=== PATIENT | male | born 1955 | race Caucasian/White ===

== ENCOUNTER 2022-01-21 20:06 | Inpatient (IN) | payer MEDICARE, MEDICAID ==
[~2022-01-21] VITALS: Ht 188 cm; Wt 66.7 kg
[2022-01-21 20:45] LABS: Base Excess Venous -11.2 mmol/L; Bicarbonate Venous 15.2 mmol/L (24.0-30.0); PCO2 Venous 57.4 mmHg (38-42); pH Blood Venous 7.11 (7.34-7.37)
[2022-01-21 21:10] LABS: BASOPHILS ABSOLUTE AUTO 0.04 K/mm3 (0.00-0.23); BASOPHILS PERCENT AUTO 0 % (0-2); EOSINOPHILS ABSOLUTE AUTO 0.01 K/mm3 (0.00-0.68); EOSINOPHILS PERCENT AUTO 0 % (0-6); Hematocrit 40.5 % (37.0-53.0); Hemoglobin 12.2 g/dL (13.5-17.5); IMMATURE GRAN ABSOLUTE AUTO 0.15 K/mm3 (0.00-0.10); IMMATURE GRAN PERCENT AUTO 1 % (0-1); LYMPHOCYTES ABSOLUTE AUTO 0.79 K/mm3 (0.84-5.20); LYMPHOCYTES PERCENT AUTO 5 % (21-46); MONOCYTES ABSOLUTE AUTO 2.28 K/mm3 (0.16-1.47); MONOCYTES PERCENT AUTO 14 % (4-13); Mean Corpuscular HGB 25.4 pg (26.0-34.0); Mean Corpuscular HGB Conc 30.1 g/dL (31.5-36.5); Mean Corpuscular Volume 84 fL (80-100); NEUTROPHILS ABSOLUTE AUTO 12.67 K/mm3 (1.96-9.15); NEUTROPHILS PERCENT AUTO 79 % (41-73); NRBC ABSOLUTE 0.02 K/mm3 (0.00-0.02); NRBC Auto 0.1 /100 WBC (0.0-0.2); RDW Coefficient Variation 22.4 % (11.7-14.2); RDW Standard Deviation 67.7 fL (35.1-46.3); White Blood Cell Count 15.94 K/mm3 (4.00-11.30)
[2022-01-21 21:26] LABS: Ethanol (Alcohol), Blood, Med <3 mg/dL; Magnesium, Blood 2.7 mg/dL (1.6-2.4)
[2022-01-21 21:33] LABS: Alanine Aminotransfer (ALT/SGP 498 U/L (12-78); Albumin, Blood 3.7 g/dL (3.4-5.0); Albumin/Globulin Ratio 0.8 (0.8-1.8); Alk Phos 152 U/L (50-136); Anion Gap 14 mmol/L (6-16); Aspartate Aminotrans (AST/SGOT 230 U/L (12-37); Bilirubin, Total 2.1 mg/dL (0.1-1.0); Blood Urea Nitrogen 21 mg/dL (8-24); Bun/Creatinine Ratio 17.5 (12.0-20.0); CO2, Blood 20 mmol/L (21-32); Calcium, Blood 9.1 mg/dL (8.5-10.1); Chloride, Blood 105 mmol/L (98-108); Globulin, Blood 4.6 g/dL (2.2-4.0); Glomerular Filtration Rate 47 (60-); Glucose, Blood 30 mg/dL (70-99); Potassium, Blood 5.7 mmol/L (3.5-5.5); Sodium, Blood 139 mmol/L (136-145); Total Protein, Blood 8.3 g/dL (6.4-8.2)
[2022-01-21 21:48] LABS: Mean Platelet Volume 10.4 fL (9.1-12.4); Platelet Count 394 K/mm3 (150-400)
[2022-01-21 21:51] LABS: Source, Urine Foley catheter
[2022-01-21 21:54] LABS: Bilirubin, Urine Neg (Neg); Blood, Urine 1+ (Neg); Glucose Qualitative, Urine Neg (Neg); Ketones, Urine 1+ (Neg); Leukocyte Esterase, Urine Neg (Neg); Nitrite, Urine Neg (Neg); Protein, Urine 3+ (Neg); Urobilinogen, Urine 3+ (Normal)
[2022-01-21 22:17] LABS: Appearance, Urine Clear (Clear); Color, Urine Yellow (P-Yellow)
[2022-01-21 22:18] LABS: Red Blood Cells, Urine 0-2 /hpf (0-2); White Blood Cells, Urine Not Seen /hpf (0-5)
[2022-01-21 22:19] LABS: Amorphous Light (0-Heavy); Bacteria Few /hpf; Spermatozoa Few /hpf; Squamous Epithelial Cells Few /hpf (Few)
[2022-01-21 22:22] LABS: U Amphetamine Screen DETECTED; U Barbituate Screen Not Detected; U Benzodiazapine Screen Not Detected; U Buprenorphine Screen Not Detected; U Cannabinoids Screen DETECTED; U Cocaine Screen Not Detected; U Methadone Screen Not Detected; U Methamphetamine Screen DETECTED; U Opiates Screen Not Detected; U Oxycodone Screen Not Detected; U Phencyclidine Screen Not Detected; U Propoxyphene Screen Not Detected
[2022-01-21 22:28] LABS: CPK Creatine Kinase 178 U/L (39-308); Creatine Kinase MB 5.6 ng/mL (0.0-3.6); Creatine Kinase MB Index 3.1 (0.0-4.0)
[2022-01-21 23:12] LABS: Influenza A, PCR NEGATIVE (NEGATIVE); Influenza B, PCR NEGATIVE (NEGATIVE); Resp Syncytial Virus, PCR NEGATIVE (NEGATIVE); SARS-Cov-2 (COVID-19) PCR, MMC NEGATIVE (NEGATIVE)
[2022-01-22 03:14] LABS: PO2 Arterial 106 mmHg (80-100)
[2022-01-22 04:15] LABS: BASOPHILS ABSOLUTE AUTO 0.02 K/mm3 (0.00-0.23); BASOPHILS PERCENT AUTO 0 % (0-2); EOSINOPHILS PERCENT AUTO 0 % (0-6); Hemoglobin 8.9 g/dL (13.5-17.5); IMMATURE GRAN ABSOLUTE AUTO 0.06 K/mm3 (0.00-0.10); IMMATURE GRAN PERCENT AUTO 1 % (0-1); LYMPHOCYTES ABSOLUTE AUTO 1.07 K/mm3 (0.84-5.20); LYMPHOCYTES PERCENT AUTO 9 % (21-46); MONOCYTES ABSOLUTE AUTO 1.03 K/mm3 (0.16-1.47); MONOCYTES PERCENT AUTO 9 % (4-13); Mean Corpuscular HGB 25.1 pg (26.0-34.0); Mean Corpuscular HGB Conc 30.7 g/dL (31.5-36.5); Mean Corpuscular Volume 82 fL (80-100); Mean Platelet Volume 10.4 fL (9.1-12.4); NEUTROPHILS ABSOLUTE AUTO 9.87 K/mm3 (1.96-9.15); NEUTROPHILS PERCENT AUTO 82 % (41-73); Platelet Count 300 K/mm3 (150-400); RDW Coefficient Variation 21.8 % (11.7-14.2); RDW Standard Deviation 65.3 fL (35.1-46.3); Red Blood Cell Count 3.55 M/mm3 (4.30-5.90); White Blood Cell Count 12.05 K/mm3 (4.00-11.30)
[2022-01-22 04:53] LABS: Albumin, Blood 2.6 g/dL (3.4-5.0); Albumin/Globulin Ratio 0.8 (0.8-1.8); Bilirubin, Total 1.3 mg/dL (0.1-1.0); Bun/Creatinine Ratio 21.2 (12.0-20.0); Calcium, Blood 7.8 mg/dL (8.5-10.1); Creatinine, Blood 1.18 mg/dL (0.60-1.20); Globulin, Blood 3.4 g/dL (2.2-4.0); Potassium, Blood 4.1 mmol/L (3.5-5.5)
--- NOTE | 2022-01-22 04:53 | NUR ---
END OF SHIFT SUMMARY PT WAS A NEW ADMIT ARRIVED AROUND 0000 PT WAS FOUND IN TENT UNRESPONSIVE ASSUMED OD WAS GIVEN NARCAN WITH NO RESULTS PTS LABS RESULTED AND PT BS WAS 30 PT WAS INTUNBATED IN ED ARRIVED ON PROPOFOL @30 WHEN TRING TO GET DIRTY SHEETS OUT AND GIVE CHG BATH PT STARTED THRASHING WAS UNABLE TO RESPOND TO COMANDS. IT TOOK A NUMBER OF NURSES AND RESPIRATORY TO KEEP PT FROM SELF EXTUBATION. THE PROP WAS INCREASED UNTILL PT WAS SEDATED. i HAVE TIRATED DOWN AND CURRENTLY @ 45. THE INCREASE OF PROPOFOL FOR SEDATION DROPPED PRESSURE SO LEVO WAS STARTED AND CURRENTLY RUNNING AT 4MCG CURRENTLY. WILL CONTINUE TO MONITOR AND REPORT TO ONCOMING RN
[2022-01-22 05:14] LABS: CPK Creatine Kinase 149 U/L (39-308)
--- NOTE | 2022-01-22 09:50 | NUR ---
SHIFT ASSESSMENT PT INTUBATED AND SEDATED. ANMOL WRIST RESTRAINTS. PROPOFOL TITRATED OFF FOR NEURO ASSESSMENT. PT NOT ABLE TO FOLLOW ANY COMMANDS, DID NOT OPEN EYES, CONTINUOUS RANDOM JERKING MOTIONS OF ALL EXTREMITIES. PT GIVEN 2MG ATIVAN RESULTING IN PT RELAXING FOR APPROXIMATELY 15 MINUTES, STILL NOT RESPONDING TO VERBAL STIMULI, NOT FOLLOWING COMMANDS. PT BACK ON PROPOFOL AT THIS TIME DUE TO INCREASED RR IN THE 40'S AND THRASHING IN BED. ON LOW DOSE LEVOPHED VIA PERIPHERAL IV @ 2MCG'S TO MAINTAIN MAP >65. OGT TO LIS. TEMP PROBE MCGILL DRAINING YELLOW URINE. WILL CONTINUE TO MONITOR CLOSELY.
--- NOTE | 2022-01-22 17:50 | NUR ---
SHIFT SUMMARY PT REMAINS INTUBATED, NO CHANGES TO VENT SETTINGS. OFF SEDATION SINCE 1314, NOT FOLLOWING ANY COMMANDS, MOVING EXTREMITIES SPONTANEOUSLY, NOT OPENING EYES GNAWING ON ETT. LEVOPHED OFF FOR MOST OF THE DAY, MAP >65. OGT TO SUCTION. TEMP PROBE MCGILL DRAINING YELLOW URINE. PT REMIANS A EGAN, NO LUCK SO FAR LOCATING FAMILY/ FRIENDS. NO OTHER ACUTE CHANGES.
--- NOTE | 2022-01-22 22:16 | NUR ---
ASSUMED CARE AT 1900 PT LAYING IN BED INTUBATED WITH VENT SETTINGS AC/VC+ 16/500/5/30%; MODERATE AMOUNT OF ORAL AND ETT SECREATIONS SUCTIONED. PT RESPONSIVE TO PAINFUL STIMULI; DOES NOT FOLLOW DIRECTIONS OR OPEN EYES BUT IS MOVING ALL EXTREMITITIES; SPONTANIOUSLY MOVES LEGS AND BRINGS THEM UP TO HIS CHEST; WILL OCCATIONALLY PULL AGAINST RESTRAINTS AND MOVES HEAD [id number]; PROPOFOL RESTARTED AFTER ASSESSMENT AT 10MCG/KG/MIN D/T RESTLESSNESS. TEMP 99.9, BLAKETS REMOVED AND FAN PLACED. HR 90'S. SBP 140'S. OG TO LISMonica MCGILL IN PLACE AND DRAINING TO GRAVITY. SEE SHIFT ASSESSMENT FOR FULL ASSESSMENT.
[2022-01-23 04:22] LABS: BASOPHILS ABSOLUTE AUTO 0.02 K/mm3 (0.00-0.23); BASOPHILS PERCENT AUTO 0 % (0-2); EOSINOPHILS ABSOLUTE AUTO 0.02 K/mm3 (0.00-0.68); EOSINOPHILS PERCENT AUTO 0 % (0-6); Hematocrit 31.4 % (37.0-53.0); Hemoglobin 9.7 g/dL (13.5-17.5); IMMATURE GRAN ABSOLUTE AUTO 0.02 K/mm3 (0.00-0.10); IMMATURE GRAN PERCENT AUTO 0 % (0-1); LYMPHOCYTES ABSOLUTE AUTO 1.36 K/mm3 (0.84-5.20); LYMPHOCYTES PERCENT AUTO 16 % (21-46); MONOCYTES ABSOLUTE AUTO 0.99 K/mm3 (0.16-1.47); MONOCYTES PERCENT AUTO 11 % (4-13); Mean Corpuscular HGB 25.1 pg (26.0-34.0); Mean Corpuscular HGB Conc 30.9 g/dL (31.5-36.5); Mean Corpuscular Volume 81 fL (80-100); Mean Platelet Volume 9.6 fL (9.1-12.4); NEUTROPHILS ABSOLUTE AUTO 6.25 K/mm3 (1.96-9.15); NEUTROPHILS PERCENT AUTO 72 % (41-73); Platelet Count 353 K/mm3 (150-400); RDW Standard Deviation 63.9 fL (35.1-46.3); Red Blood Cell Count 3.87 M/mm3 (4.30-5.90); White Blood Cell Count 8.66 K/mm3 (4.00-11.30)
[2022-01-23 04:41] LABS: Albumin, Blood 2.7 g/dL (3.4-5.0); Albumin/Globulin Ratio 0.8 (0.8-1.8); Bilirubin, Total 1.3 mg/dL (0.1-1.0); Bun/Creatinine Ratio 16.6 (12.0-20.0); Creatinine, Blood 1.51 mg/dL (0.60-1.20); Globulin, Blood 3.5 g/dL (2.2-4.0); Magnesium, Blood 2.2 mg/dL (1.6-2.4); Phosphorus, Blood 2.8 mg/dL (2.5-4.9); Potassium, Blood 3.4 mmol/L (3.5-5.5); Total Protein, Blood 6.2 g/dL (6.4-8.2)
[2022-01-23 05:05] LABS: PCO2 Arterial 36.8 mmHg (35-45); PO2 Arterial 67.8 mmHg (80-100); pH Blood Arterial 7.47 (7.35-7.45)
--- NOTE | 2022-01-23 06:21 | NUR ---
END OF SHIFT SUMMARY NO ACUTE EVENTS OVERNIGHT. PT CONT TO BE INTUBATED WITH VENT SETTINGS AC/VC 16/500/5/30%; MODERATE AMOUNT OF ORAL AND ETT SECREATIONS. PROPOFOL ON FOR 5HOURS FOR RESTLESSNESS, HAS BEEN OFF PROPOFOL SINCE 229; CONT TO NOT FOLLOW DIRECTIONS BUT MOVES EXTREMITIES SPONTANIOUSLY. AFEBRILE. HR 70-90'S. SBP 100-140. OG TO LIS. MCGILL IN PLACE WITH 2550ML OUTPUT. WILL REPORT TO AM RN WHEN AVAILABLE.
--- NOTE | 2022-01-23 13:18 | NUR ---
SHIFT ASSESSMENT ASSUMED CARE OF PT @ 1900, BEDSIDE REPORT RECEIVED FROM RUDY SERRATO. VENT SETTING-VC+16/500/30/5 c SATS >90%, LS CLEAR T/O. PT INTUBATED, OFF SEDATION SINCE APPROXIMATELY 0100. PT INTERMITTENTLY FAINTLY OPENS EYES, NOT FOLLOWING COMMANDS. MOVING ALL EXTREMITIES. PULLS AWAY TO NOXIOUS STIMULI. COUGH/GAG PRESENT. OGT TO LIS, WILL INITIATE TF TODAY, DIETARY CONSULTED. TEMP PROBE MCGILL DRAINING YELLOW URINE, AFEBRILE. SOCIAL WORKERS ATTEMPTING TO ID PATIENT, MAY CALL [facility] DEPT TO FINGERPRINT.
[2022-01-23 17:08] LABS: Magnesium, Blood 1.9 mg/dL (1.6-2.4)
[2022-01-23 17:10] LABS: Bun/Creatinine Ratio 13.6 (12.0-20.0); Calcium, Blood 8.4 mg/dL (8.5-10.1); Creatinine, Blood 1.54 mg/dL (0.60-1.20); Phosphorus, Blood 2.8 mg/dL (2.5-4.9)
--- NOTE | 2022-01-23 18:24 | NUR ---
SHIFT SUMMARY PT REMAINS INTUBATED, OFF SEDATION. VENT SETTINS REMAIN THE SAME. PT SEEMS TO BE MORE ALERT THIS EVENING. OPENING EYES TO VEBAL STIMULI, OCCASIONALLY TRACKING NURSE. DIFFICULT TO BE CERTAIN BUT INTERMITTENTLY FOLLOWING SIMPLE COMMANDS. THE NEURO CHANGES ARE NOT CONSISTENT. PT WITH MULTIPLE RUNS OF V-TACH. ELECTROLYTES CHECKED, REPLENISHING POTASSIUM AND MAGNESIUM. TEMP PROBE MCGILL DRAINING YELLOW URINE, AFEBRILE. TF INITIATED THIS EVENING. NO BM. NO OTHER ACUTE CHANGES.
[2022-01-24 03:46] LABS: BASOPHILS ABSOLUTE AUTO 0.02 K/mm3 (0.00-0.23); BASOPHILS PERCENT AUTO 0 % (0-2); EOSINOPHILS ABSOLUTE AUTO 0.04 K/mm3 (0.00-0.68); EOSINOPHILS PERCENT AUTO 1 % (0-6); Hematocrit 31.3 % (37.0-53.0); Hemoglobin 9.6 g/dL (13.5-17.5); IMMATURE GRAN ABSOLUTE AUTO 0.01 K/mm3 (0.00-0.10); IMMATURE GRAN PERCENT AUTO 0 % (0-1); LYMPHOCYTES ABSOLUTE AUTO 1.28 K/mm3 (0.84-5.20); LYMPHOCYTES PERCENT AUTO 21 % (21-46); MONOCYTES ABSOLUTE AUTO 0.71 K/mm3 (0.16-1.47); MONOCYTES PERCENT AUTO 12 % (4-13); Mean Corpuscular HGB 24.6 pg (26.0-34.0); Mean Corpuscular HGB Conc 30.7 g/dL (31.5-36.5); Mean Corpuscular Volume 80 fL (80-100); Mean Platelet Volume 9.3 fL (9.1-12.4); NEUTROPHILS ABSOLUTE AUTO 4.08 K/mm3 (1.96-9.15); NEUTROPHILS PERCENT AUTO 66 % (41-73); Platelet Count 363 K/mm3 (150-400); RDW Coefficient Variation 21.8 % (11.7-14.2); RDW Standard Deviation 63.4 fL (35.1-46.3); RETICULOCYTE ABSOLUTE 0.0449 M/mm3 (0.0200-0.1100); RETICULOCYTE COUNT PERCENT 1.15 % (0.50-2.50); White Blood Cell Count 6.14 K/mm3 (4.00-11.30)
[2022-01-24 04:27] LABS: Bun/Creatinine Ratio 15.3 (12.0-20.0); Calcium, Blood 8.3 mg/dL (8.5-10.1); Creatinine, Blood 1.44 mg/dL (0.60-1.20); Magnesium, Blood 2.1 mg/dL (1.6-2.4); Percent Saturation 5.7 % (20.0-50.0); Phosphorus, Blood 2.2 mg/dL (2.5-4.9); Potassium, Blood 2.8 mmol/L (3.5-5.5)
--- NOTE | 2022-01-24 06:55 | NUR ---
SHIFT SUMMARY: PT. REMAINED STABLE OVERNIGHT, BUT IS STILL UNABLE TO FOLLOW DIRECTIONS EVEN OFF SEDATION. PT. IS STILL IN RESTRAINTS AND ON MINIMAL VENT SETTINGS. PT. WENT INTO VTACH THIS AM WITH A RUN OF 22 BEATS, BUT CARDIOVERTED HIMSELF. MCGILL PUT OUT 3L OVERNIGHT AND TF IS RUNNING AT GOAL RATE.
--- NOTE | 2022-01-24 07:40 | NUR ---
ASSUMED CARE: PT INTUBATED WITH SETTINGS AC 16/500/30/5. NO SEDATION IN PLACE. PT OPENS HIS EYES AND MOVES ALL EXTREMITIES BUT DOES NOT FOLLOW COMMANDS OR APPEAR TO BE TRACKING WHEN STAFF IS AT BEDSIDE. DR CASILLAS AT BEDSIDE AND SAW PT WELL. NSR ON TELE, K-PHOS RUNNING WITH REPORT OF RUN OF VTACH FOR CHUCKING AND SAWING MACHINE OPERATOR. NO ACUTE NEEDS AT THIS TIME.
--- NOTE | 2022-01-24 10:04 | NUR ---
PT HAD EPISODE OF SITTING UP IN BED, APPEARED TO BE CONFUSED AND TRYING TO GET OUT OF BED. DID NOT SELFEXTUBATE. EASILY REORIENTED. WAS ABLE TO FOLLOW COMMANDS AND TRACK STAFF. DR CASILLAS AWARE. RESTING QUIETLY AT THIS TIME.
--- NOTE | 2022-01-24 15:17 | NUR ---
TWO STAFF FROM VOICE SYSTEMS ENGINEER'S OFFICE ARRIVED TO TAKE A PICTURE AND FINGERPRINTS TO AID IN IDENTIFYING PT. CARE MANAGEMENT, PALLIATIVE CARE AND THIS RN WERE AT BEDSIDE. PALLIATIVE CARE NURSE STAYED AFTER ATTEMPTING TO ASK PT ORIENTING QUESTIONS WITHOUT SUCCESS. DR CASILLAS AWARE AND ATTEMPTED TO ASK PT ORIENTING QUESTIONS. PT UNABLE TO FOLLOW COMMANDS PART OF THE TIME. DR CASILLAS STATES POSSIBLE EXTUBATION TOMORROW.
--- NOTE | 2022-01-24 17:10 | NUR ---
PT BECAME AGITATED DURING LAB DRAW, SECOND NURSE BROUGHT IN TO HOLD ARM AND PT WAS FLAILING ARMS AND LEGS. PROPOFOL RESTARTED AT 20MCG/KG FOR AGITATION. LAB STATED THEY WOULD RETURN FOR LAB DRAW WHEN PT WAS MORE CALM. CARE ASST WENT TO BEDSIDE TO ATTEMPT IV START BUT PT WAS TOO AGITATED FOR THAT. LAB CAME BACK TO REATTEMPT AND WAS ABLE TO GET SPECIMEN BUT PT WAS RESISTANT. PROPOFOL INCREASED TO 30MCG/KG AT THIS TIME.
--- NOTE | 2022-01-24 17:46 | NUR ---
TELEVISION INSTALLER'S OFFICE CALLED WITH NAME TO MATCH PT'S FINGERPRINTS. WAREHOUSE LOGISTICS COORDINATOR CALL TO ADMITTING TO GET NAME CHANGED IN SYSTEM. M.E. OFFICE REPORTED 3 PHONE NUMBERS WHICH WERE GIVEN TO PALLIATIVE CARE WHO MADE ATTEMPTS TO REACH OUT TO REPORTED SON. NO ANSWERING MACHINE ON LAST NUMBER. PALLIATIVE CARE STATED WILL FOLLOW UP TOMORROW.
--- NOTE | 2022-01-24 18:19 | NUR ---
CALL TO DR CASILLAS TO MAKE HIM AWARE OF PT'S AGITATION. MULTIPLE STAFF AT BEDSIDE ATTEMPTING TO CALM PT. DR CASILLAS ORDERED FURTHER MEDICATIONS FOR SEDATION AND DID MAKE HIM AWARE OF PT'S FEVER BUT CURRENTLY ON IV ABX. PT CURRENTLY ON 45MCG/KG PROPOFOL AND GIVEN A DOSE OF ATIVAN. FOUR POINT RESTRAINTS IN PLACE. NO FURTHER NEEDS AT THIS TIME.
--- NOTE | 2022-01-24 21:33 | NUR ---
ASSUMPTION OF CARE/ASSESSMENT: ASSUMED CARE OF PT AT 1900; PT INTUBATED AND SEDATED AT THIS TIME WITH PROPOFOL GTT 45 MCG AT THE START OF THE SHIFT AND VENT SETTINGS SPONT. PEEP- 5.0, FIO2- 30%, RR 10-12, SPO2 92%, AND TV- 450-600. SHORTLY AFTER ASSUMPTION OF CARE, PT BECAME AGGITATED WHEN STIMULATED SO PROPOFOL GTT TITRATED UP TO 55 MCG, AND 2 MG ATIVAN IV PUSH GIVEN. PT HAS RELAXED AND IS NOW LAYING IN BED PEACEFULLY. PT RESPONSIVE TO VERBAL STIMULI AND OPENNED EYES ONCE DURING INITIAL ASSESSMENT BUT NOT TRACKING OR FOLLOWING COMMANDS. PT LUNG SOUNDS ARE CLEAR THROUGHOUT. HR IN THE 80'S, SBP 120'S, AND CONTINUOUS INTERNATIONAL RECRUITER IN PLACE. OGT IN PLACE AND TUBE FEEDINGS GOING AT 40 MLS/HR, HYPOACTIVE BS IN ALL FOUR QUADRANTS, AND ABD SOFT, NON-TENDER. PT HAS A MCGILL IN PLACE AND DRAINING TO GRAVITY; URINE YELLOW. PT WARM EXTREMITIES WITH SCATTERED SCABS; PPP X 4. WILL CONTINUE TO MONITOR.
[2022-01-25 03:44] LABS: BASOPHILS ABSOLUTE AUTO 0.02 K/mm3 (0.00-0.23); BASOPHILS PERCENT AUTO 0 % (0-2); EOSINOPHILS ABSOLUTE AUTO 0.11 K/mm3 (0.00-0.68); EOSINOPHILS PERCENT AUTO 2 % (0-6); Hematocrit 31.7 % (37.0-53.0); IMMATURE GRAN ABSOLUTE AUTO 0.01 K/mm3 (0.00-0.10); IMMATURE GRAN PERCENT AUTO 0 % (0-1); LYMPHOCYTES ABSOLUTE AUTO 1.28 K/mm3 (0.84-5.20); LYMPHOCYTES PERCENT AUTO 25 % (21-46); MONOCYTES PERCENT AUTO 16 % (4-13); Mean Corpuscular HGB 25.1 pg (26.0-34.0); Mean Corpuscular HGB Conc 31.5 g/dL (31.5-36.5); Mean Corpuscular Volume 79 fL (80-100); Mean Platelet Volume 9.3 fL (9.1-12.4); NEUTROPHILS ABSOLUTE AUTO 2.92 K/mm3 (1.96-9.15); NEUTROPHILS PERCENT AUTO 57 % (41-73); Platelet Count 345 K/mm3 (150-400); RDW Coefficient Variation 21.7 % (11.7-14.2); RDW Standard Deviation 61.8 fL (35.1-46.3); Red Blood Cell Count 3.99 M/mm3 (4.30-5.90); White Blood Cell Count 5.14 K/mm3 (4.00-11.30)
[2022-01-25 04:09] LABS: Albumin, Blood 2.4 g/dL (3.4-5.0); Albumin/Globulin Ratio 0.6 (0.8-1.8); Bilirubin, Total 1.2 mg/dL (0.1-1.0); Bun/Creatinine Ratio 17.8 (12.0-20.0); Calcium, Blood 8.1 mg/dL (8.5-10.1); Creatinine, Blood 1.18 mg/dL (0.60-1.20); Globulin, Blood 3.8 g/dL (2.2-4.0); Magnesium, Blood 2.1 mg/dL (1.6-2.4); Phosphorus, Blood 2.2 mg/dL (2.5-4.9); Potassium, Blood 3.2 mmol/L (3.5-5.5); Total Protein, Blood 6.2 g/dL (6.4-8.2)
--- NOTE | 2022-01-25 06:42 | NUR ---
SHIFT SUMMARY: NO ACUTE CHANGES THIS SHIFT. PT RESTARTED ON SEDATION BEFORE THE START OF THIS SHIFT AND PROPOFOL IS NOW RUNNING AT 35 MCG. PT REMAINS INTUBATED WITH VENT SETTINGS AC/VC 16/500/5/30%. VSS THROUGHOUT THE SHIFT. PT HAD NO BOWEL MOVEMENT THIS SHIFT. WILL CONTINUE TO MONITOR UNTIL ONCOMING RN ARRIVES.
--- NOTE | 2022-01-25 08:33 | NUR ---
ASSUMED CARE REPORT FROM [place]/WALT GRANT AT 0700. PT INTUBATED AND SEDATED. VENT SETTINGS AC/VC 16/500/5/30%. LUNGS CLEAR. SCANT SECRETIONS FROM ETT. COUGH/GAG/SWALLOW REFLEX PRESENT. PROPOFOL GTT FOR SEDATION, TITRATING DOWN. PT GRIMACES c ORAL CARE, TURNS HEAD AWAY. NO OTHER MOVEMENT, NO WITHDRAWING FROM PAINFUL STIMULI. SR ON MONITOR, RATE 80'S. BP STABLE. ABD ROUND, SOFT, NON TENDER. HYPERACTIVE BT. NO BM, BOWEL CARE PROVIDED. TUBE FEEDS AT GOAL. MCGILL PATENT, DRAINING CLEAR YELLOW URINE TO GRAVITY. PIV X 3. WILL CONTINUE TO MONITOR.
--- NOTE | 2022-01-25 10:20 | NUR ---
DR HUERTA ROUNDS PLAN FOR D/C TODAY. ROOMMATE KALPESH TO PICK PT UP THIS AFTERNOON.
--- NOTE | 2022-01-25 12:57 | NUR ---
EXTUBATION PT PLACED ON SPONT 10/14/30% TV 350-400'S. TOLERATING WELL. PROPOFOL ON STANDBY. OPENS EYE SPONT, NOT FOLLOWING COMMANDS. EXTUBATED AT 1119. LUNGS CLEAR, ON , 02 SATS 94%. ABLE TO MANAGE SECRETIONS. INCOMPREHENSIBLE SOUNDS. PT RESTLESS IN BED, NOT REDIRECTABLE, PULLING ON LINES AND TUBES. APPEARS TO BE HALLUCINATING, PICKING AT AIR. PRECEDEX STARTED ORDERED. RESTRAINTS REMAIN IN PLACE. BED ALARM ON. WILL CONTINUE TO MONITOR.
--- NOTE | 2022-01-25 17:29 | NUR ---
SHIFT SUMMARY PT EXTUBATED THIS SHIFT, SEE PREVIOUS NOTE. PT c GARBLED INCOHERANT SPEECH. OCCASIONALLY ABLE TO MAKE OUT A FEW WORDS. PT PULLING ON RESTRAINTS, NOT REDIRECTABLE, DOES NOT FOLLOW DIRECTIONS. STATES "CUT THIS OFF ME." ATTEMPTED TO REORIENT. CONTINUES TO YELL, PULL ON RESTRAINTS. MEDICATED c ATIVAN X 1. PRECEDEX CONTINUES. RESTING AT THIS TIME. TITRATING PRECEDEX DOWN. LUNGS CLEAR. SR, RATE 80'S. BP STABLE. UNABLE TO FOLLOW DIRECTIONS FOR BEDSIDE SWALLOW. CATH REMOVED THIS SHIFT D/T PT AGITATION AND PULLING. WILL CONTINUE TO MONITOR.
--- NOTE | 2022-01-25 20:17 | NUR ---
ASSUMPTION OF CARE THIS RN AND ROJELIO GRANT ASSUMED CARE OF PATIENT AT 1900. REPORT TAKEN FROM DREAD GRANT. PATIENT'S BP STABLE. NSR ON MONITOR WITH HR 70-80S. AFEBRILE. PRECEDEX INFUSING AT 0.5MCG/KG/HR AT BEGINNING OF SHIFT. LUNGS CLEAR BILATERALLY; ON RA WITH O2 SATS >92%. PUPIL RESPONSE BRISK. PATIENT NOT FOLLOWING COMMANDS. PATIENT BECAME AGGITATED AFTER BEING AROUSED. BEHAVIORS ESCALATED AND PATIENT WAS NOT REDIRECTABLE. PATIENT NOT ANSWERING QUESTIONS AND ONLY SAYING REPETITIVE STATEMENTS SUCH "CUT THESE OFF OF ME", WHILE PULLING AT SOFT RESTRAINTS ON BILATERAL WRISTS. PATIENT GIVEN 25MCG OF FENTANYL WITH NO RELIEF. PATIENT BECAME MORE AGGITATED AND WAS CLOSE TO GETTING LEFT WRIST RESTRAINT OFF. PRECEDEX INCREASED TO 0.7MCG/KG/HR AT THIS TIME. ATIVAN GIVEN PER EMAR WITH GOOD RESULTS. ORAL CARE DONE ONCE PATIENT WAS CALM. REPOSITIONED. ATTENDS DRY/INTACT. BED IN LOWEST POSITION. THIS RN WILL REVIEW CHART AND CONTINUE TO MONITOR CLOSELY AND PROVIDE INTERVENTIONS NEEDED/ORDERED.
--- NOTE | 2022-01-25 20:55 | NUR ---
PATIENT UPDATE PATIENT PLACED ON 2L VIA NC DUE TO DESATTING AFTER ATIVAN GIVEN. SPO2 >92% ON 2L. PRECEDEX DECREASED TO 0.5MCG/KG/HR. SEE ASSESSMENT.
[2022-01-26 03:49] LABS: BASOPHILS ABSOLUTE AUTO 0.02 K/mm3 (0.00-0.23); BASOPHILS PERCENT AUTO 0 % (0-2); EOSINOPHILS ABSOLUTE AUTO 0.18 K/mm3 (0.00-0.68); EOSINOPHILS PERCENT AUTO 4 % (0-6); Hematocrit 32.9 % (37.0-53.0); IMMATURE GRAN ABSOLUTE AUTO 0.01 K/mm3 (0.00-0.10); IMMATURE GRAN PERCENT AUTO 0 % (0-1); LYMPHOCYTES ABSOLUTE AUTO 1.35 K/mm3 (0.84-5.20); LYMPHOCYTES PERCENT AUTO 27 % (21-46); MONOCYTES ABSOLUTE AUTO 0.82 K/mm3 (0.16-1.47); MONOCYTES PERCENT AUTO 16 % (4-13); Mean Corpuscular HGB 24.8 pg (26.0-34.0); Mean Corpuscular HGB Conc 30.4 g/dL (31.5-36.5); Mean Corpuscular Volume 81 fL (80-100); Mean Platelet Volume 8.9 fL (9.1-12.4); NEUTROPHILS ABSOLUTE AUTO 2.72 K/mm3 (1.96-9.15); NEUTROPHILS PERCENT AUTO 53 % (41-73); Platelet Count 283 K/mm3 (150-400); RDW Coefficient Variation 21.5 % (11.7-14.2); RDW Standard Deviation 63.6 fL (35.1-46.3); Red Blood Cell Count 4.04 M/mm3 (4.30-5.90)
[2022-01-26 04:08] LABS: Bun/Creatinine Ratio 19.6 (12.0-20.0); Calcium, Blood 8.4 mg/dL (8.5-10.1); Creatinine, Blood 1.07 mg/dL (0.60-1.20); Magnesium, Blood 2.3 mg/dL (1.6-2.4)
--- NOTE | 2022-01-26 05:12 | NUR ---
SHIFT SUMMARY NO ACUTE CHANGES DURING THIS SHIFT. PATIENT CONTINUES TO BE AGGITATED WHEN AWAKE AND NOT REDIRECTABLE. DOES NOT ANSWER QUESTIONS OR FOLLOW COMMANDS. PATIENT REPETIVELY ASKING FOR STAFF TO "CUT THESE OFF" WHILE PULLING AT BILATERAL WRIST RESTRAINTS. PATIENT CONTINUES TO BE NPO DUE TO MENTATION AND INABILITY TO FOLLOW DIRECTIONS. PATIENT WAS PLACED ON O2 VIA NC DUE TO DESATTING WHILE ASLEEP; O2 TITRATED TO 1L WITH SPO2 >92%. LUNG SOUNDS REMAIN CLEAR. TACHYPNEA NOTED. BP STABLE. NSR. AFEBRILE. PRECEDEX TITRATED THROUGHOUT THE SHIFT DUE TO AGGITATION; CURRENTLY INFUSING AT 0.4MCG/KG/HR. SEE ICU FLOWSHEET. PATIENT DID NOT VOID THROUGHOUT SHIFT. BLADDER SCANNED AT 0400 SHOWING >454 ON BLADDER SCANNER. STRAIGHT CATH USED PER PROTOCOL, DRAINING 400MLS OF TEA COLORED URINE. LOOSE SMALL STOOLS THROUGHOUT THE SHIFT. REPOSITIONED Q2HRS. ORAL CARE Q4HRS. SEE ASSESSMENT. BILATERAL WRIST RESTRAINTS IN PLACE. THIS RN WILL CONTINUE TO MONITOR AND PROVIDE INTERVENTIONS NEEDED/ORDERED UNTIL SHIFT CHANGE AT 0700.
--- NOTE | 2022-01-26 11:00 | NUR ---
ASSUMED CARE REPORT FROM ROJELIO GRANT AT 0700. PT RESTING IN BED. WAKES c VERBAL STIMULI. PRECEDEX GTT AT SHIFT CHANGE. TITRATED OFF. PT CURRENTLY AGITATED. AWAKE. PULLING ON LINES AND CORDS. STATES HE WANTS TO LEAVE. ABLE TO TOLERATE JELLO. LUNGS CLEAR. VSS. SR, RATE 70'S ON MONITOR. BP STABLE. WILL CONTINUE TO MONITOR.
--- NOTE | 2022-01-26 11:40 | NUR ---
PT AGITATED, PULLING ON RESTRAINTS. REQUESTING TO USE BATHROOM. TWO PERSON ASSIST TO BSC. URINATED AND HAD BM. PT YELLING FOR ICE WATER, UNABLE TO REDIRECT. SPITTING ON FLOOR. UNABLE TO STAND INDEPENDENTLY. ASSISTED BACK TO BED. MEDICATED c ATIVAN ORDERED. RESTRAINTS REMOVED TO DECREASE AGITATION. BED ALARM ON. DR NICOLAS ROUNDED. PT MED s TELE. WILL CONTINUE TO MONITOR.
[2022-01-26 15:09] LABS: Percent Saturation 12.5 % (20.0-50.0)
--- NOTE | 2022-01-26 16:16 | NUR ---
SHIFT SUMMARY PT STATUS CHANGED TO MED s TELE THIS SHIFT. PT HAD INTERMITTANT AGITATION, SEE PREVIOUS NOTE. CURRENTLY RESTING IN BED. PASSED BEDSIDE SWALLOW. NEEDS ASSISTANCE c MEALS/DRINKS. REPORT TO SANTOS GRANT FOR REST OF DAY SHIFT.
--- NOTE | 2022-01-26 16:26 | NUR ---
Assumed care of pt at 1615 from Lashawn GRANT.
--- NOTE | 2022-01-26 18:30 | NUR ---
Transferred to medical floor via bed accompanied by this RN and Ashlee CALVERT. Upon transfer, pt became awake and started yelling, demanding cereal. Chart, medications, and belongings transferred with patient.
--- NOTE | 2022-01-26 18:41 | NUR ---
TRANSFER FROM ICU Bedside report from DOLL WIGS HACKLER. Patient awaken when moved to knew bed, pt became agitated, yelling for food. Tried to redirect. Patient yelling "I want cereal, get me fucking cereal", patient is shaking bed rails, and yelling/cursing at staff. aware, 1 time order for 100mg seroquel PRN. Bed alarm activated audible, remote monitoring in place.
--- NOTE | 2022-01-26 19:28 | NUR ---
PATIENT TRYING TO GET OOB, SCREAMING AND CUSSING AT STAFF. PATIENT TRYING TO HIT STAFF. APPLIED 4X SOFT RESTRAINTS, PATIENTS SLIPPED HANDOUT, TRIED TO PUNCH NURSE. APPLIED VEST, TO RESTRAIN UPPER BODY. PATIENT SCREAMING, SPITTING AT STAFF. MD AWARE, ORDERED RESTRAINTS, AND HALDOL 10MG IM X1.
--- NOTE | 2022-01-27 04:03 | NUR ---
Patient sleeping most of shit, when not asleep very combative.
--- NOTE | 2022-01-28 04:34 | NUR ---
Patient resting in bed, in restraints at this time.
[2022-01-28] MEDS ORDERED: FURO40 PO (04:35)
[2022-01-28] MEDS ORDERED: METO50ER PO (04:35)
[2022-01-28] MEDS ORDERED: Prinivil10 MG PO (04:35)
[2022-01-28] MEDS ORDERED: Ventolin/Prove6.7 GM INH (04:36)
[2022-01-28] MEDS ORDERED: ATOR80 PO (04:36)
[2022-01-28] MEDS ORDERED: COMBIVENT RESPIM4 G1 INH (04:36)
[2022-01-28] MEDS ORDERED: SPIR25 PO (04:37)
--- NOTE | 2022-01-28 16:39 | NUR ---
PATIENT WAS PRESCRIBED SEROQUEL AND CELEXA WAS DISCONTINUED. SEROQUEL WAS GIVEN AROUN THE NOON HOUR. PATIENT IS RELAXED ASLEEP. SOFT ANKLE AND HARD WRIST RESTRAINT REMOVED. PATEINT IS ONLY IN LOVE AT THIS TIME.
--- NOTE | 2022-01-28 17:51 | NUR ---
BEGINNING OF SHIFT PATIENT AGGITATED, PULLING AGAINST RESTRAINTS. SEROQUEL 25 MG TID ORDRED. PATIENT ATE LUNCH AND WAS INFORMED OF RELEASE CRITEREA TO WHICH HE AGREES. HE WAS GIVEN A SEROQUEL-AFTERWICH HE HAS BEEN DOZING, WAKING UP WHEN TALKED TO. ANKLE SOFT AND WRIST HARD RESTRAINTS WERE REMOVED. PATIENT HAS LOVE VEST IN PLACE. CIRCULATION, ROM, IN TACT. PATIENTS MENTAL STATUS-HE DOESN'T REMEMBER WHY HE IS HERE. HE HAS NO MEMORY OF HITTING AT NURSES. UNSURE IF HIS WILLINGNESS TO BE SAFE WILL STAY MEDICATION WEARS OFF AND BECASUE SEROQUEL CAN AND IS A BIT SEDATING FOR THIS PATIENT, THE LOVE VEST IS IN PLACE FOR HIS SAFETY.
--- NOTE | 2022-01-29 03:17 | NUR ---
Patient continues to be combative with care, attempting to hit nurses while having brief changed, continues in restraints.
--- NOTE | 2022-01-29 14:51 | NUR ---
PULLED IV PATIENT PULLED IV. SITE IN LUE WRAPPED WITH GAUZE AND COBAN. PLACED BACK IN SOFT WRIST RESTRAINTS SO IV SITE CAN CLOT WITHOUT PATIENT PICKING AT COBAN AND GAUZE. CALLED DR NICOLAS AND OBTAINED ORDERS TO LEAVE IV OUT, AND TO DC IV MEDS. PATIENT RESTING CALMLY IN BED AT THIS TIME.
--- NOTE | 2022-01-29 17:58 | NUR ---
SHIFT SUMMARY PATIENT CONFUSED AND DIFFICULT TO AROUSE THROUGH AM, DECREASED RESTRAINT ORDERS FROM LOCKED WRIST AN LOVE VEST IN AM TO JUST LOVE VEST BY AFTERNOON. WOKE UP A LITTLE IN AFTERNOON. ABLE TO SIT AT EDGE OF BED TO USE URINAL. TOLERATES BITES OF REGULAR DIET AND LIQUIDS. ATTENDS IN PLACE. PATIENT PULLED IV IN AFTERNOON. ORDER FOR NO IV OBTAINED. SCHEDULED SEROQUEL DECREASED FROM TID TO BID. ABLE TO FEED HIMSELF DINNER.
[2022-01-30 05:49] LABS: BASOPHILS ABSOLUTE AUTO 0.02 K/mm3 (0.00-0.23); BASOPHILS PERCENT AUTO 0 % (0-2); EOSINOPHILS ABSOLUTE AUTO 0.13 K/mm3 (0.00-0.68); EOSINOPHILS PERCENT AUTO 1 % (0-6); Hematocrit 34.4 % (37.0-53.0); Hemoglobin 10.4 g/dL (13.5-17.5); IMMATURE GRAN ABSOLUTE AUTO 0.03 K/mm3 (0.00-0.10); IMMATURE GRAN PERCENT AUTO 0 % (0-1); LYMPHOCYTES ABSOLUTE AUTO 1.73 K/mm3 (0.84-5.20); LYMPHOCYTES PERCENT AUTO 17 % (21-46); MONOCYTES ABSOLUTE AUTO 0.96 K/mm3 (0.16-1.47); MONOCYTES PERCENT AUTO 9 % (4-13); Mean Corpuscular HGB 24.2 pg (26.0-34.0); Mean Corpuscular HGB Conc 30.2 g/dL (31.5-36.5); Mean Corpuscular Volume 80 fL (80-100); Mean Platelet Volume 9.8 fL (9.1-12.4); NEUTROPHILS ABSOLUTE AUTO 7.32 K/mm3 (1.96-9.15); NEUTROPHILS PERCENT AUTO 72 % (41-73); Platelet Count 315 K/mm3 (150-400); RDW Coefficient Variation 21.5 % (11.7-14.2); RDW Standard Deviation 61.6 fL (35.1-46.3); Red Blood Cell Count 4.29 M/mm3 (4.30-5.90); White Blood Cell Count 10.19 K/mm3 (4.00-11.30)
--- NOTE | 2022-01-30 06:04 | NUR ---
ALERT TO SELF. COOPERATIVE WITH CARE THIS SHIFT. LOVE VEST RESTRAINT FOR FALL RISK; CONTINUES TO IMPULSIVELY ATTEMPT TO EXIT BED UNSAFELY. PRN TYLENOL GIVEN FOR C/O HEADACHE AND GENERALIZED DISCOMFORT. 2X ASSIST TO BSC WITH GAITBELT. LARGE BM THIS SHIFT (LAXATIVE HELD). PO FLUIDS ENCOURAGED. SLEEP PROMOTED. BED ALARM SET. CALL LIGHT IN REACH; ENCOURAGED TO MAKE NEEDS KNOWN
--- NOTE | 2022-01-30 17:31 | NUR ---
SHIFT SUMMARY AOX1-2. NO ACUTE CHANGES THIS SHIFT. PT HAS BEEN COOPERATIVE AND FOLLOWED DIRECTIONS, ONLY TRYING TO GET OUT OF HIS LOVE TWICE BUT WAS EASY TO REDIRECT. HE IS CURRENTLY RESTING. WILL RESPORT TO ONCOMING NURSE.
--- NOTE | 2022-01-31 05:26 | NUR ---
ALERT TO SELF. COOPERATIVE WITH CARE THIS SHIFT. LOVE VEST RESTRAINT FOR FALL RISK; CONTINUES TO IMPULSIVELY ATTEMPT TO EXIT BED UNSAFELY. PRN TYLENOL GIVEN FOR C/O HEADACHE AND GENERALIZED DISCOMFORT; "FINE" PER PATIENT AT REASSESSMENT. 1X ASSIST TO BSC WITH GAITBELT. PO FLUIDS ENCOURAGED.SLEEP PROMOTED. BED ALARM SET. CALL LIGHT IN REACH; ENCOURAGED TO MAKE NEEDS KNOWN
--- NOTE | 2022-01-31 17:21 | NUR ---
SHIFT SUMMARY PT HAS BEEN NAPPING OFF AND ON TODAY WITH EPISODES OF FRUSTRATION AND CONFUSION. HE HAS BEEN ABLE TO SHAKE OUT OF HIS LOVE VEST TWICE, ONE TIME LEAVING HIS ROOM THINKING HE WAS ENTERING THE BATHROOM WHEN HE WAS ACTUALLY GOING INTO ANOTHER PT'S ROOM. SINCE THEN, HE HAS BEEN NAPPING AND COOPERATIVE. HE IS AOX1, SELF. WILL REPORT TO THE ONCOMING NURSE.
--- NOTE | 2022-02-01 07:14 | NUR ---
ALERT TO SELF. ARGUEMENTATIVE, IRRITABLE, AND LESS COOPERATIVE WITH CARE THIS SHIFT COMPARED TO PRIOR CODER. PRN ATIVAN GIVEN FOR AGITATION; APPEARS LESS AGITATED S/P ADMINISTRATION. LOVE VEST RESTRAINT FOR FALL RISK; CONTINUES TO IMPULSIVELY ATTEMPT TO EXIT BED UNSAFELY. C/O HEADACHE; PATIENT DECLINED TO ANSWER THIS RN WHEN ASKED IF HE WOULD LIKE MEDICATION FOR PAIN (OFFERED MULTIPLE TIMES WITH DIFFERENT PHRASING). PATIENT ROLLED OVER TO FACE AWAY FROM RN INSTEAD OF CONVERSING AND APPEARS TO BE SLEEPING/COMFORTABLE AT THIS TIME. 1-2X ASSIST TO BATHROOM. PO FLUIDS ENCOURAGED. SLEEP PROMOTED. BED/CHAIR ALARM SET. CALL LIGHT IN REACH; ENCOURAGED TO MAKE NEEDS KNOWN
--- NOTE | 2022-02-01 07:16 | NUR ---
A/OX2; SELF AND PLACE. REFUSING ALL MEDS BESIDES KEPPRA AND ASPIRIN. IND IN ROOM/ MONITORED IN HALLWAY. DENIES PAIN. C/O BEING COLD, WARM BLANKETS PROVIDED. VISITOR BROUGHT PIZZA THIS SHIFT; APPPEARED TO BRIGHTEN PATIENT'S MOOD; CONTINUES WITH REPATATIVE CONVERSATION T/O SHIFT R/T PLANS FOR THANKSGIVING DINNER (POLICY/PROTOCOLS ON REMAINING ON UNIT REINFORCED). PO FLUIDS ENCOURAGED. SLEEP PROMOTED. CALL LIGHT IN REACH; ENCOURAGED TO MAKE NEEDS KNOWN. AWAITING PLACEMENT.
--- NOTE | 2022-02-01 07:19 | NUR ---
ALERT TO SELF. ARGUEMENTATIVE, IRRITABLE, AND LESS COOPERATIVE WITH CARE THIS SHIFT COMPARED TO PRIOR OUTSIDE CONTRACTOR SALES. PRN ATIVAN GIVEN FOR AGITATION; APPEARS LESS AGITATED S/P ADMINISTRATION. LOVE VEST RESTRAINT FOR FALL RISK; CONTINUES TO IMPULSIVELY ATTEMPT TO EXIT BED UNSAFELY. C/O HEADACHE; PATIENT DECLINED TO ANSWER THIS RN WHEN ASKED IF HE WOULD LIKE MEDICATION FOR PAIN (OFFERED MULTIPLE TIMES WITH DIFFERENT PHRASING). PATIENT ROLLED OVER TO FACE AWAY FROM RN INSTEAD OF CONVERSING AND APPEARS TO BE SLEEPING/COMFORTABLE AT THIS TIME. 1-2X ASSIST TO BATHROOM. PO FLUIDS ENCOURAGED. SLEEP PROMOTED. BED/CHAIR ALARM SET. CALL LIGHT IN REACH; ENCOURAGED TO MAKE NEEDS KNOWN
--- NOTE | 2022-02-01 17:03 | NUR ---
SHIFT SUMMARY PT AOX1 TO SELF. HE HAS BEEN AGITATED AND IRRITABLE MOST OF THE SHIFT, MEDICATED PER THE EMAR. HE IS CONFUSED AND IS DIFFICULT CONVERSE WITH AT TIMES. HE HAS BEEN PULLING AT HIS LOVE BUT AT TIMES DUE TO WANTING TO USE THE RESTROOM OR NEEDING A SNACK. HE HAD AN EPISODE THIS SHIFT WITH THROWING A BEVERAGE AND YELLING. WILL REPORT TO THE ONCOMING NURSE.
--- NOTE | 2022-02-01 17:40 | NUR ---
WALKED INTO THE PT'S ROOM AND HE WAS AGITATED STATING, " I WANT TO GET OUT OF HERE, YOU CAN'T KEEP ME TIED UP LIKE A CHIMPANZE". HE PROCEEDED TO TO PUSH THE CHAIR BACK TO THE SINK, TURN THE NOZZEL TO THE EDGE AND SPRAY WATER ONTO THE GROUND SURROUNDING THE SINK AND THE CHAIR. ONCE HE CALMED DOWN, HE SAID HE JUST WANTED TO PEE AND GO BACK INTO THE CHAIR. WITH THE HELP OF CHALO, WE MOVED HIM FROM THE CHAIR TO THE BED. HE USED THE URINAL AND IS NOW RESTING COMFORTABLY IN BED.
--- NOTE | 2022-02-01 20:17 | NUR ---
ON CAMERA, REPORTED THAT HE WAS KICKING AT BEDSIDE TABLE. UPON ARRIVAL AT ROOM, NOTED PT YELLING HE NEEDED TO "PEE REAL BAD". ASSISTED WITH URINAL. VOIDED. LINEN CHANGED HE WAS WET WELL. POSET VEST INTACT. PT DEMANDING VEST REMOVED, BUT REMAINS A HIGH FALL RISK WHO DOES NOT REDIRECT. DISCUSSED SITUATION WITH PT. CALL LIGHT IN REACH. WILL CONTINUE TO MONITOR
--- NOTE | 2022-02-02 03:12 | NUR ---
HEALTH SERVICES DIRECTOR SUMMARY VSS. ALTERED MENTAL STATUS CONTINUES WITH PT EASILY AGITATED, REFUSING TO REDIRECT, HIGH FALL RISK, STILL TRYING TO GET OUT OF BED WITH LOVE VEST IN USE. ACCEPTED HS MEDS ORALLY, BUT QUICK TO BECOME AGITATED. FINALLY, USING URINAL WHEN INSTRUCTED TO WHILE HOLDING IT IN FRONT OF HIM TO DO SO. VERBAL RESPONSE REMAINS SLURRED AND/OR INCOHERENT TO QUESTIONS ASKED. MENTIONED ABOVE, LOVE IN USE THROUGH SHIFT. DOCUMENTATION AT LEAST EVERY 2 HRS. CURRENTLY RESTING QUIETLY WITH CALL LIGHT IN REACH. ON CAMERA FOR ADDITIONAL SAFETY
[2022-02-02 05:49] LABS: Hematocrit 36.6 % (37.0-53.0); Hemoglobin 11.6 g/dL (13.5-17.5); Mean Corpuscular HGB 25.2 pg (26.0-34.0); Mean Corpuscular HGB Conc 31.7 g/dL (31.5-36.5); Mean Corpuscular Volume 79 fL (80-100); Mean Platelet Volume 9.8 fL (9.1-12.4); Platelet Count 296 K/mm3 (150-400); RDW Coefficient Variation 21.6 % (11.7-14.2); RDW Standard Deviation 61.3 fL (35.1-46.3); Red Blood Cell Count 4.61 M/mm3 (4.30-5.90); White Blood Cell Count 7.93 K/mm3 (4.00-11.30)
[2022-02-02 06:14] LABS: Calcium, Blood 8.8 mg/dL (8.5-10.1); Creatinine, Blood 0.7 mg/dL (0.60-1.20); Potassium, Blood 4.4 mmol/L (3.5-5.5)
--- NOTE | 2022-02-02 15:11 | NUR ---
PT BEHAVIOUR BEGAN TO ESCALATE AFTER LUNCH-YELLING OUT, THRASHING AROUND IN BED, CUSSING, DEMANDING TO BE RELEASED FROM [facility]. STATED VEST WAS ON SO TIGHT HE COULDN'T BREATHE. RESP EVEN AND UNLABORED. VEST SNUG BUT NOT TIGHT. ASSISTED TO BATHROOM AND THEN TO CHAIR. ATIVAN GIVEN WHICH PT WAS QUIET FOR APPROX 30 MINUTES AFTER TAKING BUT THEN BEGAN SAME BEHAVIORS. ALSO YELLING OUT FOR A CIGARETTE. EXPLAINED NO SMOKING IN HOSPITAL AND HE DIDN'T HAVE ANY CIGARETTES HE INSISTED HE DID. CUSSING AND CALLING STAFF NAMES, BANGING CALL BUTTON ON SIDE RAIL, GRABBING IV POLE AND PULLING IT OVER HIMSELF. OFFERED TO TAKE HIM FOR A WALK IN HALLWAY AND ONCE PT WAS OUT OF HIS ROOM HE STARTED ATTEMPTING TO GO IN OTHER PTS ROOMS AND NEEDED IMMEDIATE REMOVAL AND RETURN TO ROOM. SPOKE WITH MD AND ANOTHER DOSE OF ATIVA ORDERED. WHEN OFFERED TO HIM HE SAID "I NEED 2 PILLS. I WANT IT TO KNOCK ME OUT". TOOK IT AND ROLLED OVER ON HIS SIDE. WILL CONTINUE TO MONITER BEHAVIORS.
--- NOTE | 2022-02-02 17:06 | NUR ---
SHIFT SUMMARY PT HAS BEEN LAYING IN BED QUIETLY WITH EYES CLOSED BREATHING EVEN AND UNLABORED SINCE 2ND DOSE OF ATIVAN. HOLDING VS TIL HE WAKES UP. MD IN TO SEE PT PRIOR TO HIM FALLING ASLEEP THIS TIME.
--- NOTE | 2022-02-03 03:42 | NUR ---
WIDTH STRIPPER SUMMARY VSS. REMAINS HIGH FALL RISK, REFUSES OR IS UNABLE TO REDIRECT. MEDICATED PER MAR, BUT STILL AGITATED. PULLED SELF OUT OF LOVE VEST, WANDERING UNSTEADY ABOUT HALLWAY. ESCALATED WITH AGITATION WHEN ENCOURAGED TO RETUEN TO ROOM. ASSISTED TO BED, INCREASED TO INCLUDE LIMB CUFFS PER MD ORDER, BUT PULLED SELF OUT OF SOFT WRIST CUFFS AND WAS PLACED IN BILAT WRIST LOCKED TOUGH CUFFS AND BILAT ANKLE SOFT CUFFS. AGIATION CONTINUED INTO THE SHIFT. QUIET WITH OCCASIONAL OUTBURSTS OF THREATS AND SCREAMS BUT REMAINS UNWILLING TO CALM AND AGREE TO SAFE BEHAVIOR. SE MAR FOR DETAILS OF MEDS GIVEN. CALL LIGHT IN REACH. WILL CONTINUE TO MONITOR.
--- NOTE | 2022-02-03 17:53 | NUR ---
SHIFT SUMMARY PT A&OX2-3, MOOD UP AND DOWN T/O SHIFT. D/JESSICA RESTRAINTS THIS SHIFT-DOES NOT CALL APPROPRIATLY FOR BATHROOM USE, REMOTE MONITOR AND BEDALARM IN PLACE. SHOWERED THIS SHIFT. TOLERATING PO INTAKE WELL. C/O "I NEED A CIG AND TO GO TO THE BAR." EASILY REDIRECTED. VSS. MULTIPLE BM THIS SHIFT. CALL LIGHT W/IN REACH.
--- NOTE | 2022-02-04 04:34 | NUR ---
SHIFT SUMMARY: Pt A/Ox2. Bed alarms and remote radiation monitor on for safety as pt does not call for help OOB and he can be unsteady. Pt recieved PRN Tylenol x2 overnight for c/o headache. Around 0200 pt became very restless and stated he was anxious. PRN ativan given for anxiety. No need for restraints this shift. These were taken off during previous shift and so far pt has tolerated the removal well. he had no c/o nausea, dizziness or SOB. He is currently AWP.
--- NOTE | 2022-02-04 17:05 | NUR ---
SHIFT SUMMARY PT AXO X3 THOUGH AT TIMES HAS DIFFICULTY FINDING THE RIGHT WORDS WHEN SPEAKING. PT OOB FREQUENTLY AND QUICKLY SETTING OFF BED ALARM. PT COMPLAINED OF PAIN 10/, MEDICATED PER EMAR. MEDICATED FOR ANXIETY X1 THIS SHIFT. UP WITH SBA. NO IV IN PLACE. NO ACUTE CHANGES THIS SHIFT. VSS. BED IN LOW POSITION, CALL LIGHT WITHIN REACH, BED ALARM ON, ON CAMERA. PT STATES HE WANTS TO LEAVE BUT DOES NOT FOLLOW THROUGH WITH LEAVING.
--- NOTE | 2022-02-05 04:33 | NUR ---
SHIFT SUMMARY: Pt A/Ox2 and not call light appropriate even with redirecting. Remote monitoring on for staff safety and pt safety. Bed alarms also utilized. Pt became agitated around 0145 stating he wanted a cigarette and was going to leave, he then became hard to redirect and threatned that he "wants to find someone to punch". PRN Haldol given x1 for his agitation. He had frequent voiding overnight. He had c/o severe headache, recieved PRN tylenol. No c/o nausea or SOB.
--- NOTE | 2022-02-05 16:42 | NUR ---
SHIFT SUMMARY PATIENT IS ALERT AND ORIENTED TO SELF. PATIENT HAS HAD NO ACUTE EVENTS THIS SHIFT. PATIENT HAS CONTINUOUSLY GOTTEN OUT OF BED SETTING BED ALARM OFF. VITAL SIGNS REVIEWED. PATIENT IS REDIRECTABLE FOR A SHORT WHILE BEFORE FORGETTING. PATIENT HAS HAD NO COMPLAINTS OF PAIN, SOB, NAUSEA OR VOMITTING THIS SHIFT. BED IN LOCKED AND LOWEST POSITION. CALL LIGHT IN PLACE. WILL MONITOR UNTIL SHIFT CHANGE.
--- NOTE | 2022-02-06 04:24 | NUR ---
SHIFT SUMMARY: Pt A/Ox2. Pt had c/o headache this shift, recieved PRN tylenol. Remote staking technician on as pt is impulsive at times. He was independant in his room but did sometimes try to leave the room and wander into other pt rooms. He was easily redirectable. He denies SOB, nausea, dizziness.
--- NOTE | 2022-02-06 18:42 | NUR ---
SUMMARY- PT A/O X3-4- PROBLEMS WITH SEQUENCING. PT NAPPED ON/OFF THROUGH THE DAY. PERIODS OF ANXIETY, MANY QUESTIONS TO WHAT HAPPENED TO HIM AND WHAT IS THE PLAN. CALLED DR FLORES TO SPEAK WITH HIM AT HIS REQUEST, SHE STATED SHE WOULD COME, BUT MAY NOT BE UNTIL TOMORROW. OT COG EVAL COMPLETE WITH SCORE OF 18/30- PT AMBULATES INDEPENDANT. VOIDS IN BATHROOM. TOLERATING FOOD AND FLUIDS. MEDICATED ONCE THIS PM WITH TYLENOL FOR NECK PAIN. PLAN IS TO FIND PROPER PLACEMENT FOR PATIENT.
--- NOTE | 2022-02-07 04:22 | NUR ---
SUMMARY: PT A/OX3 BUT CONFUSED TO EVENT AND PLACE W/REMINDERS PROVIDED PRN. HE REQ'S FREQ SNACKS AND COMES INTO HALLS OFTEN FOR VARIOUS NONACUTE DEMANDS. PT IS INDEPENDENT IN ROOM AND SHOWERED SELF W/SETUP ASSIST. HE GETS IMPATIENT WHEN NEEDS AREN'T MET IMMEDIATELY OR WHEN STAFF SET BOUNDARIES. CX PENDING FOR GUARDIANSHIP, FACE SHEET FAXED TO THE ER. PLACEMENT LIKELY NEEDED WELL D/T HOMELESSNESS. NO ACUTE CHANGES, VSS/AFEBRILE. WCTM AND REPORT TO DAY RN.
--- NOTE | 2022-02-07 19:28 | NUR ---
SHIFT SUMMARY NO ACUTE CHANGES. PT CONFUSED BUT COOPERATIVE OF CARE. INDPENDENT IN ROOM. PT CONTINUES TO VERBALIZE HUNGER BETWEEN MEALS. SNACKS FROM PANTRY PROVIDED. PT WONDERED OUT TO [facility] A FEW TIMES BUT WAS EASILY REDIRECTED BACK TO HIS ROOM. DOES NOT USE CALL LIGHT, PT COMES TO DOORWAY TO VOICE NEEDS. REPORT GIVEN TO SUPERVISOR DECORATING NURSE.
--- NOTE | 2022-02-08 04:35 | NUR ---
SUMMARY: PT A/OX2-3 BUT REMAINS CONFUSED TO SITUATION/PLACE W/REMINDERS PROVIDED PRN. HE'S INDEPENDENT IN ROOM AND HAS BEEN MOSTLY PLEASANT AND COOPERATIVE W/CARE BUT RANDOMLY BEGAN URINATING ON THE FLOOR AND IN HIS GARBAGE CAN THIS SHIFT. PT COULDN'T EXPLAIN WHY HE WAS SUDDENLY NECLECTING HIS RESTROOM BUT WAS RECEPTIVE TO INSTRUCTION AND NEED TO REGULARLY USE TOILET INSTEAD. HE WAS AWAKE MOST OF NOCTE, WANDERING OUT OF ROOM AND CONT'S TO REQUEST SNACKS FREQUENTLY BUT WAS COMPLIANT W/FOOD RESTRICTIONS ENFORCED TO PREVENT OVEREATING. NO ACUTE CHANGES, VSS/AFEBRILE. CX FOR GUARDIANSHIP STILL PENDING W/PROBABLE NEED FOR PLACEMENT D/T HOMELESSNESS. WCTM AND REPORT TO DAY RN.
--- NOTE | 2022-02-08 16:56 | NUR ---
SHIFT SUMMARY NO ACUTE CHANGES IN PT CONDITION. INDEPENDENT IN ROOM. PT CONTINUES TO ASK FOR SNACKS. PT WAS SEEN BY DR. LOVE. NEW ORDERS GIVEN. PER GROOVER AND STRIPER OPERATOR, DAUGHTER IS AGREEALE TO BECOMING GAURDIAN. BED IN LOWEST POSITION AND CONTINUE TO REINFORCE THE USE OF CALL LIGHT.
--- NOTE | 2022-02-09 04:44 | NUR ---
SHIFT MOSTLY UNREMARKABLE. CLIENT SLEPT THROUGH MOST OF THE NIGHT AFTER 2100 MEDICATIONS. PATIENT AWOKE ONCE THROUGH NIGHT AND AFTER WANDERING INTO [facility] LOOKING FOR RESTROOM WAS AGITATED UPON BEING DIRECTED TO RESTOOM IN HIS ROOM. SHIFT OTHERWISE NOT NOTEWORTHY. CALL LIGHT LEFT WITHIN REACH.
--- NOTE | 2022-02-09 16:36 | NUR ---
SHIFT SUMMARY PT AxOx3 WITH OCCASIONAL CONFUSION. PT IS COOPERATIVE WITH CARE, YET DEMANDING AT TIMES FOR FOOD AND DRINKS. PT IS REDIRECTABLE WHEN APPROACHED. VITALS REVIEWED. PT DENIES PAIN THIS SHIFT. CURRENT PLAN IS STILL AWAITING GUARDIANSHIP PLACEMENT. PT DENIES ANY NEEDS AT THIS TIME. CALL LIGHT IN REACH.
--- NOTE | 2022-02-10 05:31 | NUR ---
SHIFT MOSTLY UNREMARKABLE. CLIENT SLEPT THROUGH MOST OF SHIFT, AWAKING A COUPLE OF TIMES FOR TYLENOL AND FOOD. OVERALL PLEASANT AND COOPERATIVE WITH CARE. AOX1. EARLY IN EVENING PATIENT WAS ALEXANDER SEVERAL SNACKS AND THEN TRIED TO TAKE A BITE OUT OF A PAIR OF SOCKS BEFORE BEING REDIRECTED. CALL LIGHT LEFT WITHIN REACH.
[2022-02-10 06:15] LABS: Albumin, Blood 3.3 g/dL (3.4-5.0); Anion Gap 7 mmol/L (6-16); Blood Urea Nitrogen 35 mg/dL (8-24); Bun/Creatinine Ratio 44.1 (12.0-20.0); CO2, Blood 24 mmol/L (21-32); Calcium, Blood 9.8 mg/dL (8.5-10.1); Chloride, Blood 105 mmol/L (98-108); Creatinine, Blood 0.79 mg/dL (0.60-1.20); Glomerular Filtration Rate 98 (60-); Glucose, Blood 105 mg/dL (70-99); Phosphorus, Blood 4.6 mg/dL (2.5-4.9); Potassium, Blood 4.9 mmol/L (3.5-5.5); Sodium, Blood 136 mmol/L (136-145)
--- NOTE | 2022-02-10 17:43 | NUR ---
SHIFT SUMMARY NO ACUTE CHANGES DURING SHIFT. PT ALERT TO SELF AND SITUATION AT TIMES. PT ABLE TO MAKE NEEDS KNOWN. PT INDEPENDENT IN ROOM. PT REMAINS ON RA. PENDING GUARDIANSHIP AND PLACEMENT. NO C/O PAIN. WILL CONTINUE TO MONITOR. CALL LIGHT WITHIN REACH.
--- NOTE | 2022-02-11 06:14 | NUR ---
SHIFT SUMMARY - PT HAD GOOD PO INTAKE THROUGHOUT THE NIGHT. NO ACUTE CHANGES THROUGHOUT THIS SHIFT. PT HAS BEEN INDEPENDENT WITH AMBULATION IN ROOM, TO BRP, AND OCCASIONALLY OUT IN THE HALLS. PT IS EASILY REDIRECTABLE. PT'S SKIN COLOR IS DUSKY. CARE MANAGEMENT ON THE CASE, AWAITING GUARDIANSHIP/PLACEMENT. WILL CONTINUE TO MONITOR UNTIL AM SHIFT CHANGE.
--- NOTE | 2022-02-11 17:16 | NUR ---
SHIFT SUMMARY NO ACUTE CHANGES DURING SHIFT. PT ALERT AND ORIENTED X 2, CALLS APPROPRIATELY. PT ON RA, INDEPENDENT IN ROOM. PT SLIGHTLY AGITATED THIS AFTERNOON, PRN SEROQUEL ADMINISTERED, MONITOR FOR EFFECTIVENESS. PENDING GUARDIANSHIP AND PLACEMENT FOR PT. WILL CONTINUE TO MONITOR. CALL LIGHT WITHIN REACH.
--- NOTE | 2022-02-12 01:31 | NUR ---
PATIENT UP IN HALLS. REFUSED VITAL SIGNS IN THE BEGINNING OF NOC SHIFT. WOULD NOT TAKE HS MEDS. SHORT WHILE LATER PATIENT HAD CHANGE OF MOOD AND ALLOWED HS MEDS. HE IS ORIENTED TO SELF ONLY. WALKING IN HALLWAY ASKING TO GO TO THE KITCHEN AND COOK "SOMETHING" PATIENT EASILY REDIRECTABLE AND RETURNS TO ROOM. USES BATHROOM AND BACK TO BED.
--- NOTE | 2022-02-12 17:12 | NUR ---
SHIFT SUMMARY PT AXO TO SELF ONLY. PT HAS BEEN FIXATED ON "EDUCATIONAL ADVISER" AND "WORKING." VSS. NO IV IN PLACE. UP AD DAMARIS WITH STEADY GAIT. PLEASANT AND COOPERATIVE WITH CARE. MEDICATED FOR AGGITATION X1 PER EMAR. BED IN LOW POSITION, CALL LIGHT WITHIN REACH.
--- NOTE | 2022-02-13 01:41 | NUR ---
SHIFT SUMMARY; PATIENT TOOK SHOWER EARLY IN NOC SHIFT. HE FLOODED THE ROOM X 2. PATIENT WILL NEED TO BE MONITORED WHEN HE IS IN SHOWER HE TURNS SPRAYER ON TO FLOOR. HE COMPLAINS OF BACK PAIN AND WAS MEDICATED WITH TYLENOL WITH GOOD RESULTS. HE IS INDEPENDANT TO BATHROOM AND BACK. HIS VITAL SIGNS ARE WNL. HE IS ORIENTED TO SELF AT THIS TIME. PLAN IS FOR GUARDIANSHIP AND PLACEMENT.
--- NOTE | 2022-02-13 17:02 | NUR ---
PATIENT IS ALERT AND ORIENTED TO SELF AND PLACE. PATIENT HAS BEEN ASKING TO LEAVE STATING HE HAS BILLS TO PAY AND MONEY TO GET FROM A BANK IN [place] AND NEEDS TO MAKE IT THERE BEFORE THEY CLOSE. HE KEPT STATING THAT HE WAS GOING TO CALL A FLOOR WORKER. HE SAID THAT THE HOSPITAL IS INTERFERRING WITH HIM MAKING MONEY. PATIENT WAS NOTIFIED THAT WE ARE AWAITING GAURDIANSHIP AT THIS TIME AND BECAUSE OF THIS HE IS UNABLE TO LEAVE. RN TRIED TO CALM THE PATIENT WITH DIVERSIONAL ACTIVITIES BUT ULTIMATELY HE BECAME SO UPSET THAT HE SMASHED THE PHONE IN HIS ROOM ON THE GROUND MULTIPLE TIMES UNTIL IT SHATTERED. AT THIS TIME, SECURITY WAS CALLED. ONCE SECURITY ARRIVED, IM ZYPREXA WAS ADMINISTERED. PATIENT IS CALM AND COOPERATIVE WITH CARE AT THIS TIME. PATIENT IS INDEPENDENT IN HIS ROOM.
--- NOTE | 2022-02-14 05:53 | NUR ---
SHIFT SUMMARY PATIENT ALERT AND ORIENTED X3. MEDICATED PER EMAR FOR PAIN. OVERNIGHT PATIENT AT ONE POINT THREW EVERYTHING ON HIS BEDSIDE TABLE ACROSS THE ROOM. PATIENT WAS ASKED TO CLEAN THE MESS UP AND HE DID. NO ACUTE ISSUES NOTED OVERNIGHT. CALL LIGHT WITHIN REACH. REPORT GIVEN TO ONCOMING RN.
--- NOTE | 2022-02-14 08:45 | NUR ---
PT SAYING HE WANTS BREAKFAST RIGHT NOW AT 0730. SNACK FROM PANTRY OFFERED AND EXPLAINED BREAKFAST WOULD BE BROUGHT UP AT APPROX 0815. FOOD GIVEN BUT PT STATED HE WAS GOING TO LEAVE AND GET HIS JOB BACK AND DRIVE HIS TRUCK. HE HAD MONEY AND DIDN'T NEED TO STAY HERE AND WAIT FOR FOOD BECAUSE THE SANDWICH WAS LUNCH FOOD NOT BREAKFAST FOOD. CAME INTO HALLWAY AND STARTED BANGING ON [facility] DOOR. REDIRECTED BACK TO ROOM AND MORE FOOD GIVEN. PT ATE IT AND STARTED LOUDLY AND FORCEFULLY TALKING ABOUT LEAVING AGAIN WHILE FORCEFULLY PUSHING HIS BEDSIDE TABLE TOWARD STAFF. CAME OUT TO HALLWAY YELLING HE WAS GOING TO LEAVE AND HE COULDN'T BE KEPT HERE AND HE WAS GOING TO CALL HIS PARTS PULLER. STARTED KICKING [place] DOOR UNTIL IT BANGED OPEN AND HE STARTED TO LEAVE DESPITE ATTEMPTS TO REDIRECT. STAFF IN HALLWAY NEAR DESK ASKED HIM ABOUT HIS UNDRESSED APPEARANCE AND GOING OUTSIDE WHILE SECURITY CALLED. ABLE TO FINALLY REDIRECT BACK TO ROOM AFTER APPROX 5 MINUTES OF ATTEMPTED VERBAL REDIRECTION. WENT BACK TO ROOM THREATENING CALLING HIS PARTS PULLER. ZYPREXA IM GIVEN WITH PT COOPERATIVE WITH INJECTION. HAS BEEN CALM AND COOPERATIVE SINCE. DID REPORT PAIN ABOUT HIS SHOULDERS WHICH A K PAD OFFERED AND GIVEN AND TYLENOL GIVEN.
--- NOTE | 2022-02-14 18:31 | NUR ---
SHIFT SUMMARY PT HAD BEEN COOPERATIVE AND AGREEABLE THE REMAINDER OF THE DAY. DID SLAM HIS DOOR ONCE LATE THIS AFTERNOON AND FREQUENTLY ASKING FOR FOOD. ATTEMPTING TO TAKE FOOD OF MEAL CART IN HALLWAY AND NEEDED REDIRECTION NOT TO EAT FOOD OFF OF AN ALREADY USED MEAL TRAY. HE APPEARED TO STRUGGLE WITH UNDERSTANDING WHY THE FOOD WOULD BE WASTED. STABLE ON HIS FEET.
--- NOTE | 2022-02-14 23:09 | NUR ---
SARAH FROM [facility] CAME TO UNIT ASKING IF THE PATIENT HAD RECENTLY BEEN IN THE SHOWER. PATIENT'S SHOWER WAS HEARD RUNNING FOR A SHORT TIME AT THE BEGINNING OF THE SHIFT HE IS INDEPENDENT WITH BATHING. THIS RN HAD BEEN IN AN OUT OF PATIENT'S ROOM, BUT DID NOT NOTICE WATER ON THE FLOOR UP AGAINST THE WALL IT WAS UNDER FURNITURE AND FIXTURES (TABLES, BED, SHELVING, ETC). IT APPEARED THE PATIENT HAD LEFT THE SHOWER HEAD RUNNING AND OUTSIDE OF THE SHOEWR, FLOODING THE ROOM ALONG THE WALL OPPOSITE OF THE DOOR. PATIENT WAS MOVED TO [place] [id number].
--- NOTE | 2022-02-15 06:09 | NUR ---
JOB SUPERINTENDENT SUMMARY: A&Ox3-4 DEPENDING ON THE TIME AND SITUATION. 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 DURING SHIFT CHANGE, HE WAS HEARD IN THE BATHROOM AND WATER RUNNING THOUGH HE WAS TAKING A SHOWER. HE REQUESTED A SNACK, TOOK HIS MEDS WITHOUT DIFFICULTY AND WAS ALYING IN BED, QUIETLY. HOURS LATER, AMRIK ARRIVED TO THE FLOOR STATING THE ROOM BENEATH PT'S ROOM HAD WATER LEAKING FROM THE CEILING TILES. PATIENT WAS MOVED TO ANOTHER ROOM AND LATER. LATER THAT EVENING, PATIENT WAS FOUND BY PHOTOGRAPH ENLARGER ON THE FLOOR OF THE BATHROOM AT WHICH TIME HE GOT HIMSELF UP OFF OF THE FLOOR AND BACK TO HIS BED IN SPITE OF THE PHOTOGRAPH ENLARGER ASKING HE STAY WHERE HE WAS. VS OBTAINED; BP SOFT, BUT PT A&O. DENIED HITTING HEAD OR LOC. HE THEN ASKED THIS RN TO GO TO THE STORE FOR TWO LARGE BAGS OF CEREAL AND A GALLON OF MILK. WHEN TOLD THIS RN COULD NOT GO TO THE STORE FOR HIM HE BECAME HIGHLY AGITTAED AND STATED HE WAS STARVING AND DEMANDED, "BRING ME A BIG BOWL OF CEREAL RIGHT NOW!" AND BEGAN CURSING UNDER HIS BREATH. THIS RN OFFERED PRN ZYPREXA PT HAS A Hx OF KNOWING WHEN HE IS ESCALATING. MADE A DEAL HE WOULD TAKE ZYPREXA IF HE COULD HAVE CEREAL; THIS EXCHANGE WAS MADE AND PT SLEPT FOR A FEW HOURS. HE GOT OUT OF BED TO [facility], LOOKIN FOR ICE WATER, CUSSING AT STAFF AND TELLING THIS RN TO GET AWAY FROM HIM. SURVEILLANCE HAS CALLED TWICE STATING HE WAS SITTING UP ON THE RIGHT SIDE OF HIS BED, URINATING ON TO THE FLOOR. WHEN THIS RN WENT IN AND EXPLAINED THIS WAS UNACCEPTABLE BEHAVIOR, HE CONTINUED TO PRETEND TO SLEEP AND KEPT HIS EYES CLOSED. EXPLAINED IF HE CONTINUES THIS BEHAVIOR, HE WILL HAVE TO BE PUT INTO RESTRAINTS BECAUSE THIS IS A FALL RISK AND HE CONTIUED TO PRETEND TO BE SLEEPING.
--- NOTE | 2022-02-15 17:21 | NUR ---
SHIFT SUMMARY: NO NEW CHANGES THIS SHIFT. PATIENT A&OX3. IMPULSSIVE AT TIMES BUT REDIRECTABLE. PATIENT WAS AGITATED BEGINNING OF SHIFT AND WANTING TO GO HOME. EDUCATE PATIENT THAT HE NEEDED TO STAY IN THE HOSPITAL FOR HIS SAFETY. MEDICATED X1 WITH PRN SEROQUEL. PATIENT HAS BEEN CALM AND COOPERATIVE T/O THE DAY. PATIENT REPORTS OF SHOULDER/BACK PAIN. MEDICATED X1 WITH TYLENOL FOR PAIN. REPORTS OF ADEQUATE RELIEF. AMBULATES IN ROOM/BATHROOM SBA/INDEPEN WITHOUT NEEDING AMBULATORY DEVICES. PATIENT MET WITH APD IN ROOM TODAY. PATIENT RECEIVED SNACKS MULTIPLE TIMES T/O THE DAY. RECEIVED SHOWER AND LINEN CHANGED. NO IV ACCESS. VITAL SIGNS REVIEWED. CALL LIGHT IN REACH.
--- NOTE | 2022-02-15 22:01 | NUR ---
CALL F/ELECTRICAL APPLIANCE PREPARER APROX 2130 SPOKE W/ELECTRICAL APPLIANCE PREPARER; STATES SAW PT LAY DOWN ON THE FLOOR BRIEFLY AND THEN GET UP. SHORTLY AFTER PT EMERGED F/HIS ROOM STATING HE FELL AND NEEDED SOMETHING F/PAIN. PT HAS BEEN IMPULSIVE AND AGRESSIVE. I DID NOT DISCUSS ELECTRICAL APPLIANCE PREPARER'S REPORT W/PT. ASSESSED PT; NO ACUTE DISTRESS. PT REQUESTED PRN ZYPREXA INJECTION.
--- NOTE | 2022-02-16 05:45 | NUR ---
LUBE TECHNICIAN SUMMARY: PT A/OX4; PLEASANT AND COOPERATIVE WITH CARE AT BEGINNING OF SHIFT. REQUESTED "SHOT" AT BEDTIME AND SLEPT FOR SEVERAL HOURS, BUT THEN AWOKE AND STUMBLED INTO THE HALLWAY. WHEN ASKED WHAT HE NEEDED, HE KEPT HIS HEAD DOWN, TRYING TO WALK PAST STAFF SAYING, "JUST GET AWAY FROM ME. JUST LEAVE ME THE ALONE!". WAS EVENTUALLY REDIRECTED INTO ROOM TO BATHROOM. WAS SEEN ON CAMERA TO BE FILLING URINAL FROM SINK AND DRINKING FROM IT, WELL URINATING ON THE FLOOR. WHEN ASKED WHY HE DID IT, HE IGNORES STAFF AND CONTINUES TO PRETEND TO BE SLEEPING. BED ALARM IS SET BUT PT CONTINUES TO BE NONCOMPLIANT WITH USE OF CALL LIGHT AND STAFF ASSISTANCE. SAT ON FLOOR AND CLAIMED TO HAVE FALLEN. WHEN TOLD SURVEILLANCE WATCHED HIM SIT DOWN, HE DOES NOT RESPOND. VS CONTINUE TO BE STABLE. CALL LIGHT IN REACH IN SPITE OF PT'S LACK OF COMPLIANCE WITH ITS USE.
--- NOTE | 2022-02-16 07:45 | NUR ---
PATIENT WAS VERY AGITATED FIRST THING THIS AM. PATIENT BROKE THE BEDSIDE TABLE AND STARTED THROWING THE IV POLE. THIS RN ENTERED THE ROOM TO CHECK ON PATIENT. PATIENT STATED "I WANT TO BE RELEASE AND I WILL START KILLING SOMEONE TODAY IF YOU GUYS HOLDING ME AND I DON'T CARE IF I GO TO SHELTER." PATIENT ON CAMERA MONITORING. MUSIC CATALOGUER TONEY SAW WHAT HAPPENED WHEN PATIENT STARTED THROWING STUFF IN ROOM, NURSING MUSIC CATALOGUER CALLED SOLE STAINER, LIZZIE MORENO. SOLE STAINER CAME OVER IN ROOM TO ASSESS THE SITUATION AND CALLED SECURITY FOR BACK UP. SOLE STAINER CALLED DR. CHAVIRA TO CHECK THE PATIENT FOR FURTHER EVALUATION. THE NURSING MUSIC CATALOGUER AND DR. CHAVIRA SPOKE WITH THE PATIENT THE RISK AND BENIFITS KEEPING HIM IN THE HOSPITAL. PATIENT DECLINE AND DEMANDING TO BE DISCHARGE. PATIENT SIGN THE AMA PAPER. PATIENT WAS PROVIDED WITH CLOTHING AND PAIR OF SLIPPER WELL FOOD TO GO WITH THE PATIENT. PATIENT HAS NO IV ACCESS. PATIENT WAS ESCORTED BY 2 NURSING MUSIC CATALOGUER TONEY AND SOLEDAD.
== END 2022-02-16 08:21 | disposition left against medical advice (07) | DRG 917 ==
LOC: ER 20:06 → ICUW 22:30 → ICUE 22:30 → MEDS 22:30 → EDBD 22:30 → ICUE 23:45 → ICUW 01-26 15:09 → MEDS 01-26 18:19
PROVIDERS: Family Medicine; Internal Medicine; Internal Medicine Critical Care Medicine; Student in an Organized Health Care Education/Training Program; ADMIT Internal Medicine
PROC: 5A1955Z Respiratory Ventilation, Greater than 96 Consecutive Hours (ICD-10-PCS; principal; 2022-01-21)
PROC: 0BH18EZ Insertion of Endotracheal Airway into Trachea, Via Natural or Artificial Opening Endoscopic (ICD-10-PCS; 2022-01-21)
PROC: 3E033XZ Introduction of Vasopressor into Peripheral Vein, Percutaneous Approach (ICD-10-PCS; 2022-01-21)
PROC: HZ2ZZZZ Detoxification Services for Substance Abuse Treatment (ICD-10-PCS; 2022-01-21)
DX: T43.621A Poisoning by amphetamines, accidental (unintentional), initial encounter (principal); G92.8 Other toxic encephalopathy; J18.9 Pneumonia, unspecified organism; J96.01 Acute respiratory failure with hypoxia; J96.02 Acute respiratory failure with hypercapnia; J69.0 Pneumonitis due to inhalation of food and vomit; I50.21 Acute systolic (congestive) heart failure; E87.29 Other acidosis; J44.0 Chronic obstructive pulmonary disease with (acute) lower respiratory infection; F10.27 Alcohol dependence with alcohol-induced persisting dementia; N17.9 Acute kidney failure, unspecified; E87.0 Hyperosmolality and hypernatremia; T68.XXXA Hypothermia, initial encounter; Z20.822 Contact with and (suspected) exposure to COVID-19; E16.2 Hypoglycemia, unspecified; E87.5 Hyperkalemia; D64.9 Anemia, unspecified; E83.51 Hypocalcemia; E83.39 Other disorders of phosphorus metabolism; I25.10 Atherosclerotic heart disease of native coronary artery without angina pectoris; K70.30 Alcoholic cirrhosis of liver without ascites; Z59.02 Unsheltered homelessness; T40.711A Poisoning by cannabis, accidental (unintentional), initial encounter; X58.XXXA Exposure to other specified factors, initial encounter
CPT/HCPCS: 0241U; 31500; 36415; 36600; 36680; 51701; 70450; 71045; 80048; 80053; 80069; 81001; 82140; 82330; 82550; 82553; 82728; 82803; 82947; 83540; 83550; 83605; 83735; 83880; 84100; 84132; 84484; 85025; 85027; 85045; 87040; 87070; 87205; 93005; 93010; 93306; 94002; 94003; 94644; 94664; 94760; 96372-59; 96374-59; 96375-59; 97129; 97165; 99291-25; A9270; C1751; C9113; G0480; J0610; J1630; J1650; J1940; J2060; J2310; J2543; J2704; J3010; J3411; J3475; J3480; J7042; J7050; J7060

== ENCOUNTER 2022-03-07 00:27 | Emergency (ER) | payer MEDICARE, MEDICAID ==
[~2022-03-07] VITALS: Ht 180.3 cm; Wt 81.7 kg
[~2022-03-07 00:27] MED LIST: ATOR80 PO; COMBIVENT RESPIM4 G1 INH; FURO40 PO; METO50ER PO; Prinivil10 MG PO; SPIR25 PO; Ventolin/Prove6.7 GM INH
== END 2022-03-07 01:22 | disposition left against medical advice (07) ==
LOC: ER 00:27
DX: M54.9 Dorsalgia, unspecified (principal); Z53.21 Procedure and treatment not carried out due to patient leaving prior to being seen by health care provider
CPT/HCPCS: 82947